=== PATIENT | male | born 1970 | race Caucasian/White ===

== ENCOUNTER → 2019-12-16 09:22 | Outpatient (BNVA) | payer OTHER, SELFPAY | PROVIDERS: Family Provider Family Medicine; Visit Provider Emergency Medicine | DX: Z20.828 Contact with and (suspected) exposure to other viral communicable diseases (principal) | CPT/HCPCS: 87635 ==

== ENCOUNTER 2020-09-30 14:19 | Outpatient (CLI) | payer OTHER, SELFPAY ==
--- NOTE | 2020-09-30 14:28 | XR_ITS ---
WS: [id number] Exam: XR elbow LT 2V [id number] Date/Time of Exam: 09/30/2020 2:36 PM Reason For Exam: ELBOW PAIN, LEFT No acute fracture or dislocation. Joint effusion is noted. Soft tissues are otherwise unremarkable. XR/XR elbow LT 2V [id number] IMPRESSION: 1. No acute fracture. 2. Joint effusion.
== END 2020-09-30 14:20 | disposition home or self-care (01) ==
PROVIDERS: PCP Family Medicine; Visit Provider Family Medicine
DX: M25.522 Pain in left elbow (principal); M25.422 Effusion, left elbow
CPT/HCPCS: 73070

== ENCOUNTER → 2023-03-10 13:02 | Outpatient (BNVA) | payer OTHER, SELFPAY | PROVIDERS: PCP Family Medicine; Visit Provider Family Medicine | DX: I10 Essential (primary) hypertension (principal); R35.1 Nocturia | CPT/HCPCS: 80053; 80061; 84153; 84443 ==